=== PATIENT | female | born 1940 | race Caucasian/White ===

== ENCOUNTER 2018-10-17 10:00 | Observation (INO) ==
--- NOTE | 2018-10-17 10:29 | Emergency Department Note ---
Disposition Clinical Impression: Intractable nausea and vomiting Qualifiers: Vomiting type: unspecified Qualified Code(s): R11.2 - Nausea with vomiting, unspecified Urinary tract infection Qualifiers: Urinary tract infection type: acute cystitis Hematuria presence: without hematuria Qualified Code(s): N30.00 - Acute cystitis without hematuria Disposition: Admitted As Inpatient Condition: Fair Time of Disposition: 12:57 General Adult HPI - General Chief complaint: ED Nausea/Vomiting/Diarrhea Stated complaint: N/V Time Seen by Provider: 10/17/18 10:07 Source: patient, family Limitations: no limitations Nursing Notes Reviewed: Yes Vital Signs Reviewed: Yes - History of Present Illness HPI Narrative: 78-year-old female with history of Parkinson's disease who presents emergency Department with complaints of constipation, severe nausea and vomiting. The patient was seen at her primary care provider's office 3 days ago for similar symptoms. Family states she has been constipated and has not had a bowel movement over one week and she is at the point where she is only consistently tolerating ensure. She denies any pain in her abdomen, chest pain, shortness of breath, dysuria, hematuria, melena, hematochezia. She has been taking Zofran at home without improvement in her symptoms. Pain Scale: 0 - Related Data Home Medications Medication Instructions Recorded Confirmed Aspirin [Lo-Dose Aspirin EC] 81 mg PO DAILY 12/24/15 10/17/18 Carbidopa/Levodopa ER 50/200 1 each PO TID 12/24/15 10/17/18 [Sinemet ER 50-200 TAB] Cholecalciferol (Vitamin D3) 5,000 unit PO DAILY 12/24/15 10/17/18 [Vitamin D3] Lisinopril [Zestril] 20 mg PO BID 12/24/15 10/17/18 Simvastatin [Zocor] 20 mg PO HS 12/24/15 10/17/18 Oxybutynin [Ditropan] 2.5 mg PO BID 11/26/16 10/17/18 Meloxicam [Mobic] 7.5 mg PO BID 10/17/18 10/17/18 cloNIDine HCl [CloNIDine HCl] 0.1 mg PO DAILY PRN 10/17/18 10/17/18 Allergies Allergy/AdvReac Type Severity Reaction Status Date / Time No Known Allergies Allergy Verified 11/26/16 07:49 Review of Systems: ROS per history of present illness, all other systems reviewed and negative or normal. All systems ED: reviewed and negative except as stated. Review of Systems: As Per HPI Past Medical History - Past Medical History Medical history: Reports: arthritis, hyperlipidemia, hypertension Surgical history: Reports: appendectomy, breast surgery, hysterectomy - Social History Smoking Status: Former smoker Smokeless Tobacco Status: No Alcohol use: Reports: none Drug use: Reports: none Physical Exam General: Conversant. No apparent distress. Follow commands. Appears stated age. Patient has baseline tremor due to Parkinson's disease. Neck: No JVD. Trachea midline. Neck supple. Eyes: PERRL. No scleral icterus. HENT: Normocephalic and atraumatic. Moist mucus membranes. Cardiovascular: Regular rate and rhythm. Normal S1 and S2. No murmurs appreciated. Normal capillary refill. Extremities well perfused with 2+ distal pulses bilaterally. No edema. Pulmonary: Normal and equal breath sounds bilaterally, anteriorly and posteriorly. No wheezes, rales, or rhonchi. Not in respiratory distress. Speaks in full sentences. Abdomen: Soft, nondistended, and tontender. No bruits or masses. No guarding. Neuro: Alert and oriented x3. No slurred speech. No focal deficits noted. Skin: No rashes noted on visualized skin. Musculoskeletal: No bony abnormalities visualized. Moves all extremities. Psych: Normal mood. Pleasant. Makes appropriate eye contact. - General Limitations: no limitations Course - Reevaluation(s) Reevaluation #1: Discussed findings of KUB, laboratory evaluation with family. Patient's symptoms persist with nausea and she has been unable to tolerate anything orally. The patient lives at home alone and patient's family does not feel comfortable taking her home as she has been unable to care for herself. Time: 12:35 Vital Signs Temperature 98.2 F 10/17/18 10:02 Pulse Rate 97 10/17/18 10:02 Respiratory Rate 18 10/17/18 10:02 Blood Pressure 145/88 10/17/18 10:02 O2 Sat by Pulse Oximetry 96 10/17/18 10:02 Temperature 98.2 F 10/17/18 10:02 Pulse Rate 71 10/17/18 13:00 Respiratory Rate 18 10/17/18 13:00 Blood Pressure 154/63 10/17/18 13:00 O2 Sat by Pulse Oximetry 96 10/17/18 13:00 Oxygen Delivery Oxygen Delivery Room Air Medical Decision Making - MDM Narrative Medical decision making narrative: 78-year-old female with history of Parkinson's who presents the emergency department with complaints of intractable nausea and vomiting and decreased oral intake. The patient does have baseline tremors but otherwise has no abdominal tenderness, distention. The patient continues to be nauseated. 1 L fluid bolus as well as Zofran given without significant improvement. She does have an evaluation 3 days prior with a primary care physician including a right upper quadrant abdominal ultrasound and CT abdomen/pelvis. The patient continues to have no tenderness do not feel this is necessary to repeat imaging. We did get a KUB which shows no evidence of significant constipation. Laboratory evaluation including CBC, BMP, urinalysis shows no evidence of anemia, significant leukocytosis or electrolyte abdomen around a. Urinalysis shows increased white blood cell count and when compared with 3 days prior this does seem like mild improvement. Patient required repeat dosing of nausea medication, this time giving Phenergan but her symptoms persist. Given the patient's decreased oral intake and nausea will treat for urinary tract in fection. Patient's family does not feel constable bringing her home given her decreased oral intake and status as independent living. Discussed case with on- call hospitalist Dr. Falcon who agrees with plan for admission and accepts the patient to the inpatient service. Patient agrees with and understands course of treatment plan including plan for admission. All questions answered. - Medical Records Medical records reviewed: Yes I reviewed the patient's medical records. - Lab Data Lab results reviewed: Yes I reviewed the patient's lab results. Result diagrams: 10/17/18 10:34 10/17/18 10:34 Lab Results 10/17/18 10/17/18 10/17/18 Range/Units 10:34 10:34 11:05 WBC 8.2 (4.3-11.1) K/mcL RBC 3.92 (3.82-4.97) M/mcL Hgb 12.3 (11.5-15.4) g/dL Hct 35.9 (35.3-44.9) % MCV 91.6 (83.0-100.0) fL MCH 31.4 (28.0-33.3) pg MCHC 34.3 (31.6-35.5) g/dL RDW 13.2 (11.5-14.5) % Plt Count 246 (140-400) K/mcL MPV 9.4 (9.4-12.4) fL Immature Gran % 0.4 (0-4) % Seg Neutrophils % 79.8 % Lymphocytes % 13.3 % Monocytes % 5.6 % Eosinophils % 0.5 % Basophils % 0.4 % Neutrophils # 6.5 (1.6-8.9) K/mcL Lymphocytes # 1.1 (0.6-4.6) K/mcL Monocytes # 0.5 (0.0-1.3) K/mcL Eosinophils # 0.0 (0.0-0.6) K/mcL Basophils # 0.0 (0.0-0.2) K/mcL Sodium 138 (136-145) mEq/L Potassium 3.7 (3.5-5.1) mEq/L Chloride 102 (98-107) mEq/L Carbon Dioxide 26 (23-29) mEq/L BUN 16 (8-23) mg/dL Creatinine 0.64 (0.60-1.20) mg/dL Est GFR ( Amer) > 60 (> 60) Est GFR (Non-Af Amer) > 60 (> 60) BUN/Creatinine Ratio 25 (6-26) Glucose 152 H (70-105) mg/dL Calculated Osmolality 290 (280-300) Calcium 9.6 (8.6-10.3) mg/dL Magnesium 1.8 (1.6-2.6) mg/dL Total Bilirubin 0.5 (0.3-1.0) mg/dL Direct Bilirubin 0.1 (0.0-0.2) mg/dL Indirect Bilirubin 0.4 (0.0-1.2) mg/dL AST 19 (13-39) Units/L ALT < 3 L (7-52) Units/L Alkaline Phosphatase 75 (34-104) Units/L Serum Total Protein 6.9 (6.4-8.9) g/dL Albumin 4.5 (3.5-5.7) g/dL Globulin 2.4 (2.4-3.5) g/dL Albumin/Globulin Ratio 1.9 (1.1-2.2) Urine Color Yellow (Yellow) Urine Clarity Clear (Clear) Urine pH 6.5 (5.0-8.0) pH Units Ur Specific [place] 1.005 L (1.010-1.025) Urine Protein Negative (Neg-Trace) mg/dL Urine Glucose (UA) Normal (Normal) mg/dL Urine Ketones Negative (Negative) mg/dL Urine Blood Negative (Negative) Urine Nitrite Negative (Negative) Urine Bilirubin Negative (Negative) Urine Urobilinogen Normal (Normal) mg/dL Ur Leukocyte Esterase Moderate H (Negative) Urine Microscopic RBC 0-3 (0-3) per hpf Urine Microscopic WBC 15-30 H (0-3) per hpf Ur Squamous Epith Cells Few (None-Few) per lpf Urine Bacteria None Seen (None-Few) per hpf Hyaline Casts None Seen (None-Few) per lpf Ur Culture Indicated? YES A (NO) - Radiology Data Radiology results reviewed: Yes I reviewed the patient's radiology results. KUB X-Ray 10/17/18 10:57 IMPRESSION: Nonobstructive bowel gas pattern. The patient does not appear constipated. D/ / Edilson Pruitt MD / Edilson Pruitt MD Interpreting Provider: Edilson Pruitt MD - EKG Data EKG #1 EKG attestation: Yes I reviewed and interpreted this EKG. EKG results narrative: Normal sinus rhythm rate of 93. Normal axis. Normal intervals. No significant ST or T-wave abnormalities. No acute ischemic changes. No prior for comparison.
[2018-10-17 10:45] LABS: Basophils % 0.4 %; Eosinophils % 0.5 %; Hematocrit 35.9 % (35.3-44.9); Hemoglobin 12.3 g/dL (11.5-15.4); Immature Granulocytes % 0.4 % (0-4); Lymphocytes # 1.1 K/mcL (0.6-4.6); Lymphocytes % 13.3 %; Mean Corpuscular HGB Conc 34.3 g/dL (31.6-35.5); Mean Corpuscular Hemoglobin 31.4 pg (28.0-33.3); Mean Corpuscular Volume 91.6 fL (83.0-100.0); Mean Platelet Volume 9.4 fL (9.4-12.4); Monocytes # 0.5 K/mcL (0.0-1.3); Monocytes % 5.6 %; Neutrophils # 6.5 K/mcL (1.6-8.9); Platelet Count 246 K/mcL (140-400); Red Blood Count 3.92 M/mcL (3.82-4.97); Red Cell Distribution Width 13.2 % (11.5-14.5); Segmented Neutrophils % 79.8 %; White Blood Count 8.2 K/mcL (4.3-11.1)
[2018-10-17] MEDS ORDERED: Ondansetron 4 MG/2 ML VIAL IVP STA (10:56)
[2018-10-17] MEDS ORDERED: 0.9 % Sodium Chloride 1,000 ML IVC STA (10:56)
[2018-10-17 11:13] LABS: Alanine Aminotransferase < 3 Units/L (7-52)
[2018-10-17 11:14] LABS: Albumin 4.5 g/dL (3.5-5.7); Albumin/Globulin Ratio 1.9 (1.1-2.2); Alkaline Phosphatase 75 Units/L (34-104); Aspartate Amino Transferase 19 Units/L (13-39); BUN/Creatinine Ratio 25 (6-26); Bilirubin,Direct 0.1 mg/dL (0.0-0.2); Bilirubin,Indirect 0.4 mg/dL (0.0-1.2); Bilirubin,Total 0.5 mg/dL (0.3-1.0); Blood Urea Nitrogen 16 mg/dL (8-23); Calcium 9.6 mg/dL (8.6-10.3); Carbon Dioxide 26 mEq/L (23-29); Chloride 102 mEq/L (98-107); Globulin 2.4 g/dL (2.4-3.5); Glucose 152 mg/dL (70-105); Magnesium 1.8 mg/dL (1.6-2.6); Osmolality,Calculated 290 (280-300); Potassium 3.7 mEq/L (3.5-5.1); Sodium 138 mEq/L (136-145); Total Protein 6.9 g/dL (6.4-8.9); eGFR For African Americans > 60 (> 60); eGFR For Non-African Americans > 60 (> 60)
[2018-10-17 11:16] LABS: Bilirubin,Urine Negative (Negative); Blood,Urine Negative (Negative); Clarity,Urine Clear (Clear); Color,Urine Yellow (Yellow); Glucose,Urine (UA) Normal (Normal); Ketones,Urine Negative (Negative); Leukocyte Esterase,Urine Moderate (Negative); Nitrite,Urine Negative (Negative); PH,Urine 6.5 pH Units (5.0-8.0); Protein,Urine Negative (Neg-Trace); Specific Gravity,Urine 1.005 (1.010-1.025); Urobilinogen,Urine Normal (Normal)
[2018-10-17 11:17] LABS: Bacteria,Urine None Seen per hpf (None-Few); Hyaline Casts,Urine None Seen per lpf (None-Few); RBC,Urine 0-3 per hpf (0-3); Squamous Epithelial Cell,Urine Few per lpf (None-Few); WBC,Urine 15-30 per hpf (0-3)
[2018-10-17] MEDS ORDERED: cefTRIAXone 1,000 MG in Water for inj. (sterile) 20 ML 10 ML IVP STA (11:32)
--- NOTE | 2018-10-17 11:36 | Emergency Department Note ---
Disposition Referrals: Barrie Schulte DO [Primary Care Provider] - Forms: ED Satisfaction Letter General Adult HPI - General Chief complaint: ED Nausea/Vomiting/Diarrhea Stated complaint: N/V Time Seen by Provider: 10/17/18 10:07 Source: patient, family Limitations: no limitations - History of Present Illness Pain Scale: 0 - Related Data Home Medications Medication Instructions Recorded Confirmed Aspirin [Lo-Dose Aspirin EC] 81 mg PO DAILY 12/24/15 10/17/18 Carbidopa/Levodopa ER 50/200 1 each PO TID 12/24/15 10/17/18 [Sinemet ER 50-200 TAB] Cholecalciferol (Vitamin D3) 5,000 unit PO DAILY 12/24/15 10/17/18 [Vitamin D3] Lisinopril [Zestril] 20 mg PO BID 12/24/15 10/17/18 Simvastatin [Zocor] 20 mg PO HS 12/24/15 10/17/18 Oxybutynin [Ditropan] 2.5 mg PO BID 11/26/16 10/17/18 Meloxicam [Mobic] 7.5 mg PO BID 10/17/18 10/17/18 cloNIDine HCl [CloNIDine HCl] 0.1 mg PO DAILY PRN 10/17/18 10/17/18 Allergies Allergy/AdvReac Type Severity Reaction Status Date / Time No Known Allergies Allergy Verified 11/26/16 07:49 Past Medical History - Past Medical History Medical history: Reports: arthritis, hyperlipidemia, hypertension Surgical history: Reports: appendectomy, breast surgery, hysterectomy - Social History Smoking Status: Former smoker Smokeless Tobacco Status: No Alcohol use: Reports: none Drug use: Reports: none Physical Exam - General Limitations: no limitations Course Vital Signs Temperature 98.2 F 10/17/18 10:02 Pulse Rate 97 10/17/18 10:02 Respiratory Rate 18 10/17/18 10:02 Blood Pressure 145/88 10/17/18 10:02 O2 Sat by Pulse Oximetry 96 10/17/18 10:02 Temperature 98.2 F 10/17/18 10:02 Pulse Rate 84 10/17/18 11:22 Respiratory Rate 18 10/17/18 11:22 Blood Pressure 157/117 10/17/18 11:22 O2 Sat by Pulse Oximetry 96 10/17/18 10:02 Oxygen Delivery Oxygen Delivery Room Air Medical Decision Making - Lab Data Result diagrams: 10/17/18 10:34 10/17/18 10:34 Lab Results 10/17/18 10/17/18 10/17/18 Range/Units 10:34 10:34 11:05 WBC 8.2 (4.3-11.1) K/mcL RBC 3.92 (3.82-4.97) M/mcL Hgb 12.3 (11.5-15.4) g/dL Hct 35.9 (35.3-44.9) % MCV 91.6 (83.0-100.0) fL MCH 31.4 (28.0-33.3) pg MCHC 34.3 (31.6-35.5) g/dL RDW 13.2 (11.5-14.5) % Plt Count 246 (140-400) K/mcL MPV 9.4 (9.4-12.4) fL Immature Gran % 0.4 (0-4) % Seg Neutrophils % 79.8 % Lymphocytes % 13.3 % Monocytes % 5.6 % Eosinophils % 0.5 % Basophils % 0.4 % Neutrophils # 6.5 (1.6-8.9) K/mcL Lymphocytes # 1.1 (0.6-4.6) K/mcL Monocytes # 0.5 (0.0-1.3) K/mcL Eosinophils # 0.0 (0.0-0.6) K/mcL Basophils # 0.0 (0.0-0.2) K/mcL Sodium 138 (136-145) mEq/L Potassium 3.7 (3.5-5.1) mEq/L Chloride 102 (98-107) mEq/L Carbon Dioxide 26 (23-29) mEq/L BUN 16 (8-23) mg/dL Creatinine 0.64 (0.60-1.20) mg/dL Est GFR ( Amer) > 60 (> 60) Est GFR (Non-Af Amer) > 60 (> 60) BUN/Creatinine Ratio 25 (6-26) Glucose 152 H (70-105) mg/dL Calculated Osmolality 290 (280-300) Calcium 9.6 (8.6-10.3) mg/dL Magnesium 1.8 (1.6-2.6) mg/dL Total Bilirubin 0.5 (0.3-1.0) mg/dL Direct Bilirubin 0.1 (0.0-0.2) mg/dL Indirect Bilirubin 0.4 (0.0-1.2) mg/dL AST 19 (13-39) Units/L ALT < 3 L (7-52) Units/L Alkaline Phosphatase 75 (34-104) Units/L Serum Total Protein 6.9 (6.4-8.9) g/dL Albumin 4.5 (3.5-5.7) g/dL Globulin 2.4 (2.4-3.5) g/dL Albumin/Globulin Ratio 1.9 (1.1-2.2) Urine Color Yellow (Yellow) Urine Clarity Clear (Clear) Urine pH 6.5 (5.0-8.0) pH Units Ur Specific [place] 1.005 L (1.010-1.025) Urine Protein Negative (Neg-Trace) mg/dL Urine Glucose (UA) Normal (Normal) mg/dL Urine Ketones Negative (Negative) mg/dL Urine Blood Negative (Negative) Urine Nitrite Negative (Negative) Urine Bilirubin Negative (Negative) Urine Urobilinogen Normal (Normal) mg/dL Ur Leukocyte Esterase Moderate H (Negative) Urine Microscopic RBC 0-3 (0-3) per hpf Urine Microscopic WBC 15-30 H (0-3) per hpf Ur Squamous Epith Cells Few (None-Few) per lpf Urine Bacteria None Seen (None-Few) per hpf Hyaline Casts None Seen (None-Few) per lpf Ur Culture Indicated? YES A (NO) Attestation Statement - Attestation Attestation: I examined this patient and my medical decision-making was reviewed with the Resident Physician. I agree with the documented findings, disposition and treatment plan as described except to the extent set forth below. Patient presents for reevaluation after being seen here 3 days ago with same complaint. Family says she has not had a bowel movement in at least a week, possibly 2. They are concerned about dehydration because everything she eats or drinks comes back up. She complains of persistent nausea. On my exam, abdomen is soft, nondistended, no tenderness (although there was some tenderness with the placement of the ultrasound probe in the epigastrium). Urinalysis looks better than it did 3 days ago when the culture was negative. There were a few bacteria at that point, there are none now; there were 50-100 white cells at that point, there are 15-30 now; both had moderate esterase and few epithelial cells. I was present and assisting with Dr. Weiss's ultrasound, which was consistent with volume depletion.
[2018-10-17] MEDS ORDERED: *HR* Promethazine 25 MG/ML VIAL IVP ONE (12:19)
[2018-10-17] MEDS ORDERED: cefTRIAXone 1,000 MG in Water for inj. (sterile) 20 ML 10 ML IVP ONE (12:56)
--- NOTE | 2018-10-17 13:54 | Electrocardiograph Report ---
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
[2018-10-17] MEDS ORDERED: OXYCODONE Oral CONC 10 MG/0.5 ML ORAL.SYG SL PRN (15:13)
[2018-10-17] MEDS ORDERED: Naloxone 0.4 MG/ML INJ IVP PRN (15:13)
[2018-10-17] MEDS ORDERED: Ondansetron 4 MG/2 ML VIAL IVP PRN (15:13)
[2018-10-17] MEDS ORDERED: 0.9 % Sodium Chloride 1,000 ML IVC SCH (15:15)
[2018-10-17] MEDS ORDERED: cloNIDine HCl 0.1 MG TABLET PO PRN (15:18)
--- NOTE | 2018-10-17 15:24 | Internal Med History&Physical ---
Date of Encounter: 10/17/18 Time of Encounter: 15:24 Internal Medicine - H&P: HPI Chief complaint: N/V Admitted From: Emergency Dept Plans for Post Hospital Care: Home History of present illness: Ms. Marie is a 78 year old female past medical history of hypertension hyperlipidemia Parkinson's disease-patient presented to [facility] ED with complaints of nausea vomiting and constipation for the past month. She also is ex periencing intermittent epigastric pain which she states is chronic. According to the family and patient has not had a bowel movement in the past week possibly 2. Currently denies any abdominal pain she states whenever she eats anything it immediately vomits she has no appetite she has had approximately 5-6 pound weight loss in the past month. She denies any difficulty swallowing or globulus sensation she did have an outpatient CT of abdomen/pelvis with contrast which did not show anything acute she has had an cholecystectomy appendectomy and hysterectomy outpatient right upper quadrant ultrasound was unremarkable. Denies any fevers chills cough melena hematochezia or hematemesis. She p resented to the ER with the above complaints. KUB was obtained which showed nonobstructive bowel gas pattern and that the patient did not appear constipated. Lab work was unremarkable urinalysis did show some leukocyte esterase and WBC- urine cultures were sent and patient was initiated on Rocephi n. She has been admitted for further workup and evaluation. Currently patient denies any abdominal pain she is currently sipping on some soda and tolerating well discuss treatment plan with the patient who verbalized understanding. Also discussed CODE STATUS with the patient who expressed she would like to be a full code. Past Med Surg Social Fam HX - Past Medical History Medical history: arthritis, hyperlipidemia, hypertension Additional medical history: Parkinson's Disease Psychiatric history: no psych history - Past Surgical History Surgical History: appendectomy, breast surgery, cholecystectomy, hysterectomy - Social History Smoking Status: Former smoker Smokeless Tobacco Status: No Alcohol use: none Drug use: none - Family History Mother Living Status: Age at : 80 Hx Family Respiratory Disorders: Yes Father Living Status: Age at : 91 Cause of : CHF Hx Family Cardiac Disorders: Yes Internal Medicine - H&P: Meds Aspirin [Lo-Dose Aspirin EC] 81 mg PO DAILY 12/24/15 [History] Cholecalciferol (Vitamin D3) [Vitamin D3] 5,000 unit PO DAILY 12/24/15 [History] Lisinopril [Zestril] 20 mg PO BID 12/24/15 [History] Simvastatin [Zocor] 20 mg PO HS 12/24/15 [History] Oxybutynin [Ditropan] 5 mg PO DAILY 11/26/16 [History] Carbidopa/Levodopa 25/100 [Sinemet 25/100] 2 each PO TID 10/17/18 [History] Doxylamine Succinate [Unisom] 25 mg PO HS 10/17/18 [History] Meloxicam [Mobic] 7.5 mg PO BID 10/17/18 [History] Multivitamin/Iron/Folic Acid [Centrum Complete Multivit Tab] 1 each PO DAILY 10/17/18 [History] cloNIDine HCl [CloNIDine HCl] 0.1 mg PO DAILY PRN 10/17/18 [History] Allergy/AdvReac Type Severity Reaction Status Date / Time No Known Allergies Allergy Verified 11/26/16 07:49 All Systems PM: A 10-system review of systems was performed and is negative for pertinent findings except as documented above in the HPI. - Constitutional Constitutional: no chills, no fever(s), no night sweats - EENT Eyes: no change in vision, no discharge, no pain, no photophobia Ears: no ear discharge, no ear pain, no tinnitus Nose, mouth and throat: no dysphagia, no nasal discharge, no neck pain, no sore throat - Cardiovascular Cardiovascular ROS IM: no chest pain, no diaphoresis, no dyspnea, no lightheade dness, no palpitations, no syncope - Respiratory Respiratory: no cough, no dyspnea, no wheezing, no excessive phlegm production - Gastrointestinal Gastrointestinal: abdominal pain, no diarrhea, no hematemesis, no hematochezia, no melena, no nausea, no vomiting - Genitourinary Genitourinary: no change in urinary stream, no dysuria, no flank pain, no hematuria - Musculoskeletal Musculoskeletal ROS IM: no numbness, no tingling - Integumentary Integumentary IM: no rash, no unusual bruising - Neurological Neurological ROS: no confusion, no convulsions, no focal weakness, no numbness, no tingling, no tremor(s) - Hematologic/Lymphatic Hematologic/Lymphatic: no easy bruising - Constitutional Vitals: Temp Pulse Resp BP Pulse Ox 98.2 F 71 18 154/63 96 10/17/18 10:02 10/17/18 13:00 10/17/18 13:00 10/17/18 13:00 10/17/18 13:00 General appearance: Present: A&O X 3 Exam: . - Head Head exam: Present: atraumatic, normocephalic - Eye Eye exam: Present: PERRL, conjuntiva pink, sclera anicteric Pupils: Present: PERRL - Neck Neck exam general surgery: Present: supple, trachea midline. Absent: lymphadenopathy - Respiratory Respiratory exam: Present: CTAB. Absent: accessory muscle use, rales, rhonchi, wheezes - Cardiovascular Cardiovascular exam: Present: RRR, +S1, +S2. Absent: diastolic murmur, gallop, rubs, systolic murmur - GI/Abdominal GI/Abdominal exam: Present: normal bowel sounds, soft, no peritoneal signs. Absent: distended, tenderness - Extremities Exam Extremities exam: Present: warm, radial pulses palpable and symmetrical. Absent: calf tenderness, cyanotic, pedal edema - Neurological Exam Neurological exam: Present: CN II-XII intact, oriented X3, no focal deficits. Absent: pronater drift, facial droop, speech deficit Additional comments: noted jerking movements - Skin Skin exam: Present: dry, intact Internal Med - H&P Results - Labs CBC & Chem 7: 10/17/18 10:34 10/17/18 10:34 Labs: Short CBC 10/17/18 Range/Units 10:34 WBC 8.2 (4.3-11.1) K/mcL Hgb 12.3 (11.5-15.4) g/dL Hct 35.9 (35.3-44.9) % Plt Count 246 (140-400) K/mcL Neutrophils # 6.5 (1.6-8.9) K/mcL BMP 10/17/18 10:34 Sodium 138 Potassium 3.7 Chloride 102 Carbon Dioxide 26 BUN 16 Creatinine 0.64 Glucose 152 H Calcium 9.6 Liver Function 10/17/18 Range/Units 10:34 Total Bilirubin 0.5 (0.3-1.0) mg/dL Direct Bilirubin 0.1 (0.0-0.2) mg/dL AST 19 (13-39) Units/L ALT < 3 L (7-52) Units/L Alkaline Phosphatase 75 (34-104) Units/L Albumin 4.5 (3.5-5.7) g/dL Urine 10/17/18 Range/Units 11:05 Urine Color Yellow (Yellow) Urine Clarity Clear (Clear) Urine pH 6.5 (5.0-8.0) pH Units Ur Specific [place] 1.005 L (1.010-1.025) Urine Protein Negative (Neg-Trace) mg/dL Urine Glucose (UA) Normal (Normal) mg/dL - Impressions ITS Impressions KUB X-Ray 10/17/18 10:57 IMPRESSION: Nonobstructive bowel gas pattern. The patient does not appear constipated. D/ / Edilson Pruitt MD / Edilson Pruitt MD Interpreting Provider: Edilson Pruitt MD - Assessment and Plan (1) HTN (hypertension) Current Visit: Yes Status: Acute Assessment and plan: We will continue home medications Qualifiers: Hypertension type: essential hypertension Qualified Code(s): I10 - Essential (primary) hypertension (2) Intractable nausea and vomiting Current Visit: Yes Status: Acute Assessment and plan: 1 she states for the past month she has been unable to eat or tolerate solid foods when she eats she immediately vomits. She also has been experiencing anorexia and has not had an appetite for the past month she has lost approximately 5-6 pounds. She has been tolerating liquids and ensure. She does have occasional abdominal pain however she states this is chronic is mostly epigastric side in and will relieve on its own. Pain is not associated with food. She also states that she has been experiencing constipation and feels as if her abdomen is full. She did have a CT of abdomen and pelvis with contrast which was unremarkable. Also right upper quadrant abdominal ultrasound which was also unremarkable. KUB while in the ER showed mild to moderate stool and nonobstructive bowel gas pattern. She has been passing gas. Denies any globulus sensation Denies any fevers does not have a white count. She did have a colonoscopy in 2017 which was unremarkable however is never had an EGD. Denies any heartburn or GERD symptoms denies any melena or hematochezia or hematemesis. We will place patient on clear liquid diet and advance as tolerated We will give IV fluids Monitor electrolytes and replace as needed Antiemetics We will consult GI Qualifiers: Vomiting type: unspecified Qualified Code(s): R11.2 - Nausea with vomiting, unspecified (3) Urinary tract infection Current Visit: Yes Status: Acute Assessment and plan: Initiated on Rocephin urine culture pending Qualifiers: Urinary tract infection type: acute cystitis Hematuria presence: without hematuria Qualified Code(s): N30.00 - Acute cystitis without hematuria (4) Constipation Current Visit: Yes Status: Acute Assessment and plan: Patient states that she has not had a bowel movement in approximately one week family states possibly 2 weeks. She has had poor oral intake secondary to nausea and vomiting. Patient states her abdomen feels full KUB shows nonobstructive bowel gas pattern and does not appear constipated. Denies any abdominal pain GI has been consulted Qualifiers: Constipation type: unspecified constipation type Qualified Code(s): K59.00 - Constipation, unspecified - Time Spent With Patient Total time spent is greater than 50% in coordination of care (as documented) at patient's floor/unit and/or counseling patient:
[2018-10-17] MEDS: *HR* Promethazine 25 MG/ML VIAL IVP PRN ×2 (17:24→23:35)
[2018-10-17] MEDS ORDERED: MELOXICAM 7.5MG TAB PO PRN (17:48)
[2018-10-17] MEDS: CARBIDOPA/LEVODOPA 25/100MG TAB PO SCH (19:45)
[2018-10-17] MEDS: LISINOPRIL 20MG PO SCH (19:45)
[2018-10-17] MEDS: SIMVASTATIN 20MG TAB PO SCH (19:45)
[2018-10-17] MEDS ORDERED: Carbidopa/Levodopa 25/100 TABLET PO SCH (21:00)
[2018-10-17] MEDS ORDERED: Lisinopril 20 MG TABLET PO SCH (21:00)
[2018-10-18 02:42] LABS: Basophils % 0.3 %; Eosinophils # 0.1 K/mcL (0.0-0.6); Eosinophils % 1.4 %; Hematocrit 33.9 % (35.3-44.9); Hemoglobin 11.3 g/dL (11.5-15.4); Immature Granulocytes % 0.3 % (0-4); Lymphocytes # 1.4 K/mcL (0.6-4.6); Lymphocytes % 18.1 %; Mean Corpuscular HGB Conc 33.3 g/dL (31.6-35.5); Mean Corpuscular Hemoglobin 31.6 pg (28.0-33.3); Mean Corpuscular Volume 94.7 fL (83.0-100.0); Mean Platelet Volume 9.4 fL (9.4-12.4); Monocytes # 0.7 K/mcL (0.0-1.3); Monocytes % 8.8 %; Neutrophils # 5.6 K/mcL (1.6-8.9); Platelet Count 221 K/mcL (140-400); Red Blood Count 3.58 M/mcL (3.82-4.97); Red Cell Distribution Width 13.1 % (11.5-14.5); Segmented Neutrophils % 71.1 %; White Blood Count 7.9 K/mcL (4.3-11.1)
[2018-10-18 02:57] LABS: BUN/Creatinine Ratio 15 (6-26); Blood Urea Nitrogen 10 mg/dL (8-23); Calcium 8.8 mg/dL (8.6-10.3); Carbon Dioxide 28 mEq/L (23-29); Chloride 111 mEq/L (98-107); Glucose 89 mg/dL (70-105); Magnesium 1.9 mg/dL (1.6-2.6); Osmolality,Calculated 301 (280-300); Potassium 3.4 mEq/L (3.5-5.1); Sodium 146 mEq/L (136-145); eGFR For African Americans > 60 (> 60); eGFR For Non-African Americans > 60 (> 60)
--- NOTE | 2018-10-18 08:32 | Internal Med Progress Note ---
Hospitalist Progress Note - Encounter Date of Encounter: 10/18/18 Time of Encounter: 12:49 - Subjective Interval History: Patient was seen and examined at bedside Currently she is sleeping S/P EGD- discussed finding with the patient family at bedside- We will evaluate if she can tolerate eating once she is awake. - Exam Vitals: Temp Pulse Resp BP Pulse Ox 98.8 F 57 15 132/66 94 10/18/18 06:53 10/18/18 06:53 10/18/18 06:53 10/18/18 06:53 10/18/18 06:53 Exam: Skin: Free of rash and discoloration. Eyes: Sclera is white. There is no discharge from eyes. ENMT: Oral/pharyngeal mucosa is normal in appearance. There is no discharge from nose or ears. Respiratory: Normal breath sounds with no crackles and wheezes bilaterally. CV: Heart is regular with no gallop or murmur. GI: Abdomen is flat and soft with no palpable mass or visceromegaly. : There is no tenderness in patient's flanks bilaterally. Neuro exam: He has good strength in upper and lower extremities. He has normal eye movements. no spatstic movements noted at this time Psychiatric: He has normal affect. His thought process is appropriate to the situation. - Assessment and Plan (1) HTN (hypertension) Current Visit: Yes Status: Chronic Assessment and Plan: We will continue home medications- BP stable at this time (2) Intractable nausea and vomiting Current Visit: Yes Status: Acute Assessment and Plan: 1 she states for the past month she has been unable to eat or tolerate solid foods when she eats she immediately vomits. She also has been experiencing anorexia and has not had an appetite for the past month she has lost approximately 5-6 pounds. She has been tolerating liquids and ensure. She does have occasional abdominal pain however she states this is chronic is mostly epigastric side in and will relieve on its own. Pain is not associated with food. She also states that she has been experiencing constipation and feels as if her abdomen is full. She did have a CT of abdomen and pelvis with contrast which was unremarkable. Also right upper quadrant abdominal ultrasound which was also unremarkable. KUB while in the ER showed mild to moderate stool and nonobstructive bowel gas pattern. She has been passing gas. Denies any globulus sensation Denies any fevers does not have a white count. She did have a colonoscopy in 2017 which was unremarkable however is never had an EGD. Denies any heartburn or GERD symptoms denies any melena or hematochezia or hematemesis. We will place patient on clear liquid diet and advance as tolerated We will give IV fluids Monitor electrolytes and replace as needed Antiemetics We will consult GI 10/18 patient underwent EGD today-Normal study- Maybe side effects of medications- w ill start on PPI per recommendations I am concerned about progressing Parkinson symptoms will have speech see patient (3) Urinary tract infection Current Visit: Yes Status: Acute Assessment and Plan: Initiated on Rocephin urine culture pending (4) Constipation Current Visit: Yes Status: Chronic Assessment and Plan: Patient states that she has not had a bowel movement in approximately one week family states possibly 2 weeks. She has had poor oral intake secondary to nausea and vomiting. Patient states her abdomen feels full KUB shows nonobstructive bowel gas pattern and does not appear constipated. Denies any abdominal pain will place on stool softeners- she has had poor oral intake (5) Parkinson disease Current Visit: No Status: Chronic Assessment and Plan: Hx of parkinson disease- she does have significant head tremor and bilat upper extremity tremors- she states she has been compliant with meds cont with home medications - Time Spent with Patient Total time spent is greater than 50% in coordination of care (as documented) at patient's floor/unit and/or counseling patient: Internal Medicine: Result - Labs CBC & Chem 7: 10/18/18 02:19 10/18/18 02:19 Labs: Short CBC 10/17/18 10/18/18 Range/Units 10:34 02:19 WBC 8.2 7.9 (4.3-11.1) K/mcL Hgb 12.3 11.3 L (11.5-15.4) g/dL Hct 35.9 33.9 L (35.3-44.9) % Plt Count 246 221 (140-400) K/mcL Neutrophils # 6.5 5.6 (1.6-8.9) K/mcL BMP 10/17/18 10/18/18 10:34 02:19 Sodium 138 146 H Potassium 3.7 3.4 L Chloride 102 111 H Carbon Dioxide 26 28 BUN 16 10 Creatinine 0.64 0.65 Glucose 152 H 89 Calcium 9.6 8.8 Liver Function 10/17/18 Range/Units 10:34 Total Bilirubin 0.5 (0.3-1.0) mg/dL Direct Bilirubin 0.1 (0.0-0.2) mg/dL AST 19 (13-39) Units/L ALT < 3 L (7-52) Units/L Alkaline Phosphatase 75 (34-104) Units/L Albumin 4.5 (3.5-5.7) g/dL Urine 10/17/18 Range/Units 11:05 Urine Color Yellow (Yellow) Urine Clarity Clear (Clear) Urine pH 6.5 (5.0-8.0) pH Units Ur Specific [place] 1.005 L (1.010-1.025) Urine Protein Negative (Neg-Trace) mg/dL Urine Glucose (UA) Normal (Normal) mg/dL - Impressions Impressions KUB X-Ray 10/17/18 10:57 IMPRESSION: Nonobstructive bowel gas pattern. The patient does not appear constipated. D/ / Edilson Pruitt MD / Edilson Pruitt MD Interpreting Provider: Edilson Pruitt MD Consult Discharge Plan - Plan Referrals: Barrie Schulte, [Primary Care Provider] - (1) HTN (hypertension) Qualifiers: Hypertension type: essential hypertension Qualified Code(s): I10 - Essential (primary) hypertension (2) Intractable nausea and vomiting Qualifiers: Vomiting type: unspecified Qualified Code(s): R11.2 - Nausea with vomiting, unspecified (3) Urinary tract infection Qualifiers: Urinary tract infection type: acute cystitis Hematuria presence: without hematuria Qualified Code(s): N30.00 - Acute cystitis without hematuria (4) Constipation Qualifiers: Constipation type: unspecified constipation type Qualified Code(s): K59.00 - Constipation, unspecified
[2018-10-18] MEDS ORDERED: Aspirin Enteric Coated 81 MG Tablet PO SCH (09:00)
--- NOTE | 2018-10-18 09:02 | Internal Medicine Consult Note ---
Date of Encounter: 10/18/18 Time of Encounter: 08:59 - Assessment and Plan (1) Intractable nausea and vomiting Current Visit: Yes Status: Acute Assessment and plan: Her exam is fairly benign, as has recent imaging with CAT scan of abdomen and pelvis. Differential to include uncontrolled reflux, even know she is really not having any symptoms. Does not appear to be neurologic with history of parkinsonism although that is a potential consideration as well. Other things to consider to include gastroparesis, mass, which I think is unlikely. And I think more possibility could be medication side effect I would certainly re commend holding the statin, nonsteroidals, aspirin therapy and only give medication which is needed at this time. I think is a good chance her upper endoscopy could be normal. If this the case, then we will recommend empiric PPI therapy I have described risks and benefits of procedure with the family, consent has been signed. Qualifiers: Vomiting type: unspecified Qualified Code(s): R11.2 - Nausea with vomiting, unspecified (2) Constipation Current Visit: Yes Status: Chronic Qualifiers: Constipation type: unspecified constipation type Qualified Code(s): K59.00 - Constipation, unspecified (3) HTN (hypertension) Current Visit: Yes Status: Chronic Qualifiers: Hypertension type: essential hypertension Qualified Code(s): I10 - Essential (primary) hypertension Internal Medicine - CN: HPI - Data of Consult Consult date: 10/18/18 Requesting Physician: Elda Falcon - Consult Narrative Reason for consult: Protracted nausea and vomiting History of present illness: Ms. Marie is a 78 year old female seen by the hospitalist. I was asked to see her regarding progressive nausea and vomiting over the past month or so. In the outpatient setting, she has had a negative CAT scan of the abdomen and pelvis and lab studies, her labs on admission here look pretty good as well, her urine is slightly dirty although she reports no UTI symptoms. Her sister, and granddaughter in the room, and also relate a history of nausea and vomiting for the past month, she has some early satiety with this. She denies any reflux, there is some vague upper abdominal discomfort, but I cannot tell this with or without meals. For the past few months if not longer, she has had progressive constipation, but that is not surprising given the meds for her parkinsonism. There have been no changes in medication recently, no dysphagia or odynophagia, no trouble swallowing. There has been some weight loss. Family reports only able to keep down Ensure Past Med Surg Social Fam HX - Past Medical History Medical history: arthritis, hyperlipidemia, hypertension Additional medical history: Parkinson's Disease Psychiatric history: no psych history - Past Surgical History Surgical History: appendectomy, breast surgery, cholecystectomy, hysterectomy - Social History Smoking Status: Former smoker Smokeless Tobacco Status: No Alcohol use: none Drug use: none - Family History Mother Living Status: Age at : 80 Hx Family Respiratory Disorders: Yes Father Living Status: Age at : 91 Cause of : CHF Hx Family Cardiac Disorders: Yes - Constitutional Constitutional: anorexia, fatigue, lethargy, weight loss, no fever(s) - EENT Nose, mouth and throat: no mouth lesions, no neck pain, no odynophagia, no sore throat Additional comments: She is without teeth. Does wear dentures. - Cardiovascular Cardiovascular ROS IM: no chest pain, no diaphoresis, no dyspnea on exertion, no irregular heart rhythm, no syncope - Respiratory Respiratory: no cough, no dyspnea, no wheezing, no snoring - Gastrointestinal Gastrointestinal: abdominal pain, early satiety, nausea, vomiting, no dysphagia, no heartburn, no hematemesis, no hematochezia - Neurological Neurological ROS: tremor(s) Internal Medicine - CN: Meds Aspirin [Lo-Dose Aspirin EC] 81 mg PO DAILY 12/24/15 [History] Cholecalciferol (Vitamin D3) [Vitamin D3] 5,000 unit PO DAILY 12/24/15 [History] Lisinopril [Zestril] 20 mg PO BID 12/24/15 [History] Simvastatin [Zocor] 20 mg PO HS 12/24/15 [History] Oxybutynin [Ditropan] 5 mg PO DAILY 11/26/16 [History] Carbidopa/Levodopa 25/100 [Sinemet 25/100] 2 each PO TID 10/17/18 [History] Doxylamine Succinate [Unisom] 25 mg PO HS 10/17/18 [History] Meloxicam [Mobic] 7.5 mg PO BID 10/17/18 [History] Multivitamin/Iron/Folic Acid [Centrum Complete Multivit Tab] 1 each PO DAILY 06/21/19 [History] cloNIDine HCl [CloNIDine HCl] 0.1 mg PO DAILY PRN 10/17/18 [History] Allergy/AdvReac Type Severity Reaction Status Date / Time No Known Allergies Allergy Verified 11/26/16 07:49 Internal Med - CN: Exam - Constitutional Vitals: Temp Pulse Resp BP Pulse Ox 98.8 F 57 15 132/66 94 10/18/18 06:53 10/18/18 06:53 10/18/18 06:53 10/18/18 06:53 10/18/18 06:53 General appearance IM: Present: disheveled, A&O X 3, pleasant, answers questions appropriately Exam: Family is present, she excellent little lethargic, but apparently per family, 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 - Head Head exam: Present: atraumatic, normal inspection - Eye Eye exam: Present: conjuntiva pink, sclera anicteric - ENT ENT exam: Present: mucous membranes moist, normal oropharynx - Neck Neck exam general surgery: Present: full ROM, supple, trachea midline - Respiratory Respiratory exam: Present: CTAB - Cardiovascular Cardiovascular exam IM: Present: RRR, +S1, +S2. Absent: JVD, tachycardia - GI/Abdominal GI/Abdominal exam IM: Present: normal bowel sounds, soft, no peritoneal signs. Absent: rebound, tenderness Internal Medicine - CN: Reslt - Labs CBC & Chem 7: 10/18/18 02:19 10/18/18 02:19 Labs: Short CBC 10/17/18 10/18/18 Range/Units 10:34 02:19 WBC 8.2 7.9 (4.3-11.1) K/mcL Hgb 12.3 11.3 L (11.5-15.4) g/dL Hct 35.9 33.9 L (35.3-44.9) % Plt Count 246 221 (140-400) K/mcL Neutrophils # 6.5 5.6 (1.6-8.9) K/mcL BMP 10/17/18 10/18/18 10:34 02:19 Sodium 138 146 H Potassium 3.7 3.4 L Chloride 102 111 H Carbon Dioxide 26 28 BUN 16 10 Creatinine 0.64 0.65 Glucose 152 H 89 Calcium 9.6 8.8 Liver Function 10/17/18 Range/Units 10:34 Total Bilirubin 0.5 (0.3-1.0) mg/dL Direct Bilirubin 0.1 (0.0-0.2) mg/dL AST 19 (13-39) Units/L ALT < 3 L (7-52) Units/L Alkaline Phosphatase 75 (34-104) Units/L Albumin 4.5 (3.5-5.7) g/dL Urine 10/17/18 Range/Units 11:05 Urine Color Yellow (Yellow) Urine Clarity Clear (Clear) Urine pH 6.5 (5.0-8.0) pH Units Ur Specific [place] 1.005 L (1.010-1.025) Urine Protein Negative (Neg-Trace) mg/dL Urine Glucose (UA) Normal (Normal) mg/dL - Impressions Impressions KUB X-Ray 10/17/18 10:57 IMPRESSION: Nonobstructive bowel gas pattern. The patient does not appear constipated. D/ / Edilson Pruitt MD / Edilson Pruitt MD Interpreting Provider: Edilson Pruitt MD Consult Discharge Plan - Plan Referrals: Barrie Schulte DO [Primary Care Provider] -
[2018-10-18] MEDS: cefTRIAXone 1,000 MG in Water for inj. (sterile) 20 ML 10 ML IVP SCH (09:33)
[2018-10-18] MEDS ORDERED: *HR* Midazolam HCl 5 MG/5 ML VIAL IVP ONE ×2 (09:56→10:15)
[2018-10-18] MEDS ORDERED: *HR* FentaNYL (PF) 100 MCG/2 ML VIAL ONE (09:56)
[2018-10-18] MEDS ORDERED: *HR* FentaNYL (PF) 100 MCG/2 ML VIAL IVP ONE (10:15)
[2018-10-18] MEDS ORDERED: Simethicone 40 MG/0.6 ML MLS IR ONE (10:15)
[2018-10-18] MEDS ORDERED: Tetracaine/Benzocaine/Butamben 1 SPRAY AEROSOL MM ONE (10:15)
[2018-10-18] MEDS ORDERED: 0.9 % Sodium Chloride 1,000 ML IVC SCH (10:15)
--- NOTE | 2018-10-18 10:15 | Pre-Sedation Evaluation ---
Pre-sedation evaluation - Pre-sedation checklist Date of procedure: 10/18/18 Procedure: EGD Recent Vitals: Last Vital Signs Temp 98.4 F 10/18/18 10:08 Pulse 66 10/18/18 10:08 Resp 16 10/18/18 10:08 BP 182/79 10/18/18 10:08 Pulse Ox 95 10/18/18 10:08 H&P (including ROS) documented in medical record: Yes Previous reaction to sedatives/anesthetics: No Dietary Status: NPO after Midnight Airway Assessment: Patient can open mouth completely, TMJ function normal Dentition: dentures removed Possible difficult airway: No ASA Classification *see protocol: CLASS II-Mild systemic disease Plan of Care: Pt appropriate candidate for procedure/moderate/conscious sedation
--- NOTE | 2018-10-18 10:31 | Event Note ---
Date of Encounter: 10/18/18 Time of Encounter: 10:27 EGD Findings: 1. Normal Study Impressons: 1. May be med side affect. 2. Cannot exclude esoph. dysmotility, Consider atypical GERD 3. Does not appear to be Gastroparesis Recommendations: 1. Stop all un needed meds; No more Statin, ASA, Mobic 2. Frequent small meals.. I suspect the more pureed, the better she will do. 3. PPI therapy for 3 months. I have talked with family.
[2018-10-18] MEDS: CARBIDOPA/LEVODOPA 25/100MG TAB PO SCH ×3 (10:57→20:14)
[2018-10-18] MEDS: OXYBUTYNIN 5 MG PO SCH (10:57)
[2018-10-18] MEDS: LISINOPRIL 20MG PO SCH ×2 (10:57→20:15)
[2018-10-18] MEDS ORDERED: Potassium Chloride 20 MEQ, Lidocaine 1% 2 ML in D5% in Water 250 ML IVPB ONE (12:22)
[2018-10-18] MEDS: SIMVASTATIN 20MG TAB PO SCH (20:16)
[2018-10-19 02:05] LABS: BUN/Creatinine Ratio 23 (6-26); Blood Urea Nitrogen 13 mg/dL (8-23); Calcium 8.5 mg/dL (8.6-10.3); Carbon Dioxide 25 mEq/L (23-29); Chloride 109 mEq/L (98-107); Glucose 101 mg/dL (70-105); Osmolality,Calculated 290 (280-300); Potassium 3.5 mEq/L (3.5-5.1); Sodium 140 mEq/L (136-145); eGFR For African Americans > 60 (> 60); eGFR For Non-African Americans > 60 (> 60)
[2018-10-19 06:52] VITALS: BP 167/93
[2018-10-19] MEDS: OXYBUTYNIN 5 MG PO SCH (08:11)
[2018-10-19] MEDS: cefTRIAXone 1,000 MG in Water for inj. (sterile) 20 ML 10 ML IVP SCH (08:11)
[2018-10-19] MEDS: CARBIDOPA/LEVODOPA 25/100MG TAB PO SCH (08:12)
[2018-10-19] MEDS: LISINOPRIL 20MG PO SCH (08:12)
--- NOTE | 2018-10-19 10:09 | Discharge Summary ---
- NOTES TO OUTPATIENT PROVIDER Notes to Outpatient Provider: Patient presented after experiencing nausea and vomiting after eating -EGD completed-within normal limits-avoid gastric irritants-evaluated by speech therapy recommending patient sit up at least 30 minutes after eating-soft diet-may benefit from barium swallow as outpatient Orders not resulted at time of discharge: Pending orders 10/17/18 11:05 Culture,Urine [RM] Stat Date of Encounter: 10/19/18 Time of Encounter: 10:04 - Discharge Diagnosis (1) HTN (hypertension) Priority: Secondary Status: Chronic Qualifiers: Hypertension type: essential hypertension Qualified Code(s): I10 - Essential (primary) hypertension (2) Intractable nausea and vomiting Priority: Primary Status: Acute Qualifiers: Vomiting type: unspecified Qualified Code(s): R11.2 - Nausea with vomiting, unspecified (3) Urinary tract infection Priority: Secondary Status: Acute Qualifiers: Urinary tract infection type: acute cystitis Hematuria presence: without hematuria Qualified Code(s): N30.00 - Acute cystitis without hematuria (4) Constipation Priority: Secondary Status: Chronic Qualifiers: Constipation type: unspecified constipation type Qualified Code(s): K59.00 - Constipation, unspecified (5) Parkinson disease Priority: Secondary Status: Chronic Hospital course: Ms. Marie is a 78 year old female past medical history of hypertension hyperlipidemia Parkinson's disease presented to [facility] ED with complaints of nausea vomiting constipation for the past month. Denies any difficulty swallowing or globulus sensation outpatient CT abdomen/pelvis with contrast with nothing acute. Right upper quadrant ultrasound was unremarkable. No fevers or chills. KUB was obtained with nonobstructive bowel gas pattern patient did not appear constipated.-Urinalysis slightly however patient has not had any urinary complaints no fever no white count- patient was evaluated by speech therapy recommending sitting up 30 minutes post feeding as well as soft diet. Underwent EGD which was normal-avoid gastric irritants continue with PPI-patient has been eating and tolerating soft diet during this admission no more nausea or vomiting at this time. Advised patient follow-up with primary care provider - recommend follow-up outpatient barium swallow. Patient verbalized understanding she is here today with stable at this time and she is ready for discharge. - Time Spent with Patient Total time spent providing and/or coordinating discharge services: - Discharge Medications Prescriptions: New Omeprazole [PriLOSEC] 20 mg PO BIDAC #60 capsule. Ondansetron ODT [Zofran ODT] 4 mg SL Q6HR #30 tab.rapdis Continued Lisinopril [Zestril] 20 mg PO BID Oxybutynin [Ditropan] 5 mg PO DAILY cloNIDine HCl [CloNIDine HCl] 0.1 mg PO DAILY PRN PRN Reason: Blood Pressure Carbidopa/Levodopa 25/100 [Sinemet 25/100] 2 each PO TID Doxylamine Succinate [Unisom] 25 mg PO HS Multivitamin/Iron/Folic Acid [Centrum Complete Multivit Tab] 1 each PO DAILY Discontinued Meloxicam [Mobic] 7.5 mg PO BID No Action Simvastatin [Zocor] 20 mg PO HS Cholecalciferol (Vitamin D3) [Vitamin D3] 5,000 unit PO DAILY Aspirin [Lo-Dose Aspirin EC] 81 mg PO DAILY Home Medications: Aspirin [Lo-Dose Aspirin EC] 81 mg PO DAILY 12/24/15 [History] Cholecalciferol (Vitamin D3) [Vitamin D3] 5,000 unit PO DAILY 12/24/15 [History] Lisinopril [Zestril] 20 mg PO BID 12/24/15 [History] Simvastatin [Zocor] 20 mg PO HS 12/24/15 [History] Oxybutynin [Ditropan] 5 mg PO DAILY 11/26/16 [History] Carbidopa/Levodopa 25/100 [Sinemet 25/100] 2 each PO TID 10/17/18 [History] Doxylamine Succinate [Unisom] 25 mg PO HS 10/17/18 [History] Multivitamin/Iron/Folic Acid [Centrum Complete Multivit Tab] 1 each PO DAILY 10/17/18 [History] cloNIDine HCl [CloNIDine HCl] 0.1 mg PO DAILY PRN 10/17/18 [History] Omeprazole [PriLOSEC] 20 mg PO BIDAC #60 capsule. 10/19/18 [Rx] Ondansetron ODT [Zofran ODT] 4 mg SL Q6HR #30 tab.rapdis 10/19/18 [Rx] Allergies/Adverse Reactions: Allergy/AdvReac Type Severity Reaction Status Date / Time No Known Allergies Allergy Verified 11/26/16 07:49 Date of admission: 10/17/18 13:20 Primary care physician: Barrie Schulte DO Consults: 10/17/18 17:02 Consult to Gastroenterology [CONS] Routine Consulting Provider: Ge Richmond Reason for Consult: N/V Time Notified: 17:02 Call Completed: Yes Discharging clinician: Sally Steele Anticipated date of discharge: 10/19/18 - Constitutional Vitals: Temp Pulse Resp BP Pulse Ox 98.0 F 60 15 167/93 94 10/19/18 06:47 10/19/18 06:47 10/19/18 06:47 10/19/18 06:47 10/19/18 06:47 General appearance: Present: disheveled, A&O X 3, pleasant, answers questions appropriately Exam: Skin: Free of rash and discoloration. Eyes: Sclera is white. There is no discharge from eyes. ENMT: Oral/pharyngeal mucosa is normal in appearance. There is no discharge from nose or ears. Respiratory: Normal breath sounds with no crackles and wheezes bilaterally. CV: Heart is regular with no gallop or murmur. GI: Abdomen is flat and soft with no palpable mass or visceromegaly. : There is no tenderness in patient's flanks bilaterally. Neuro exam: He has good strength in upper and lower extremities. He has normal eye movements. no spatstic movements noted at this time Psychiatric: He has normal affect. His thought process is appropriate to the situation. - Patient Status Disposition: Home, Self-Care Condition: Fair Functional capacity at discharge: independent ambulation Overall status at discharge: patient is back to baseline - Discharge Instructions Instructions: Urinary Tract Infection in Women (DC) Follow Up With: Barrie Schulte DO [Primary Care Provider] - (Appointment has been requested.) Additional Instructions: Patient states that up 30 minutes post feeding-soft diet continue with PPI no gastric irritants-avoid NSAIDs - Diet and Activity Activity: increase activity as tolerated
== END 2018-10-19 11:24 | disposition home or self-care (01) ==
LOC: 3BNU 10:00 → EMEROOARM 10:00 → 3BNU 14:15
PROVIDERS: ADMIT Internal Medicine Nephrology; ATTEND Internal Medicine Nephrology

== ENCOUNTER 2020-02-23 18:05 | Inpatient (IN) ==
[2020-02-23] MEDS ORDERED: Lido/Epi/Tetra Gel 2 ML SYRINGE TP ONE (18:24)
[2020-02-23] MEDS ORDERED: Tdap (Boostrix) Vaccine 0.5 ML SYRINGE IM ONE (18:24)
[2020-02-23] MEDS ORDERED: Lidocaine/EPI 1:100k 1% 30 ML VIAL INFILT ONE (18:24)
[2020-02-23] MEDS ORDERED: *HR* FentaNYL (PF) 100 MCG/2 ML VIAL IVP ONE (18:37)
[2020-02-23] MEDS ORDERED: *HR* HYDROmorphone (PF) 1 MG/ML SYRINGE IVP ONE (20:21)
[2020-02-23 20:25] LABS: Basophils % 0.3 %; Eosinophils % 0.5 %; Hematocrit 37.6 % (35.3-44.9); Hemoglobin 12.4 g/dL (11.5-15.4); Immature Granulocytes % 0.6 % (0-4); Lymphocytes % 11.6 %; Mean Corpuscular Hemoglobin 31.1 pg (28.0-33.3); Mean Corpuscular Volume 94.2 fL (83.0-100.0); Mean Platelet Volume 9.6 fL (9.4-12.4); Monocytes # 0.3 K/mcL (0.0-1.3); Monocytes % 3.6 %; Neutrophils # 7.2 K/mcL (1.6-8.9); Platelet Count 247 K/mcL (140-400); Red Blood Count 3.99 M/mcL (3.82-4.97); Segmented Neutrophils % 83.4 %; White Blood Count 8.7 K/mcL (4.3-11.1)
[2020-02-23 20:26] LABS: Bilirubin,Urine Negative (Negative); Blood,Urine Negative (Negative); Clarity,Urine Clear (Clear); Color,Urine Light-Yellow (Yellow); Glucose,Urine (UA) Normal (Normal); Ketones,Urine Negative (Negative); Leukocyte Esterase,Urine Negative (Negative); Nitrite,Urine Negative (Negative); PH,Urine 6.5 pH Units (5.0-8.0); Protein,Urine Negative (Neg-Trace); Urobilinogen,Urine Normal (Normal)
[2020-02-23 20:30] LABS: Prothrombin Time 11.8 Seconds (9.4-12.1)
[2020-02-23 20:33] LABS: Activated Partial Thrombo Time 32.3 Seconds (26.0-36.0)
[2020-02-23 20:46] LABS: BUN/Creatinine Ratio 37 (6-26); Blood Urea Nitrogen 17 mg/dL (8-23); Calcium 9.1 mg/dL (8.6-10.3); Carbon Dioxide 23 mEq/L (23-29); Chloride 109 mEq/L (98-107); Glucose 158 mg/dL (70-105); Osmolality,Calculated 297 (280-300); Potassium 3.8 mEq/L (3.5-5.1); Sodium 141 mEq/L (136-145); eGFR For African Americans > 60 (> 60); eGFR For Non-African Americans > 60 (> 60)
[2020-02-23 22:31] LABS: Adenovirus Not Detected (Not Detect); Coronavirus 229E Not Detected (Not Detect); Coronavirus HKU1 Not Detected (Not Detect); Coronavirus NL63 Not Detected (Not Detect); Coronavirus OC43 Not Detected (Not Detect); SARS-CoV-2 Not Detected (Not Detect)
[2020-02-23 22:32] LABS: Bordetella Pertussis Not Detected (Not Detect); Chlamydophila pneumoniae Not Detected (Not Detect); Human Metapneumovirus Not Detected (Not Detect); Human Rhinovirus/Enterovirus Not Detected (Not Detect); Influenza A Subtype 2009 H1 Not Detected (Not Detect); Influenza B Not Detected (Not Detect); Mycoplasma pneumoniae Not Detected (Not Detect); Parainfluenza Virus 1 Not Detected (Not Detect); Parainfluenza Virus 2 Not Detected (Not Detect); Parainfluenza Virus 3 Not Detected (Not Detect); Parainfluenza Virus 4 Not Detected (Not Detect); Respiratory Syncytial Virus Not Detected (Not Detect)
[2020-02-23] MEDS ORDERED: Naloxone 0.4 MG/ML INJ IVP PRN (23:24)
[2020-02-24 06:27] LABS: Hemoglobin 11.8 g/dL (11.5-15.4); Mean Corpuscular HGB Conc 32.8 g/dL (31.6-35.5); Mean Corpuscular Hemoglobin 31.3 pg (28.0-33.3); Mean Corpuscular Volume 95.5 fL (83.0-100.0); Mean Platelet Volume 9.9 fL (9.4-12.4); Platelet Count 215 K/mcL (140-400); Red Blood Count 3.77 M/mcL (3.82-4.97); Red Cell Distribution Width 13.1 % (11.5-14.5); White Blood Count 12.1 K/mcL (4.3-11.1)
[2020-02-24 06:28] LABS: INR 1.1; Prothrombin Time 12.6 Seconds (9.4-12.1)
[2020-02-24 06:31] LABS: Activated Partial Thrombo Time 29.4 Seconds (26.0-36.0)
[2020-02-24 06:52] LABS: BUN/Creatinine Ratio 33 (6-26); Blood Urea Nitrogen 18 mg/dL (8-23); Carbon Dioxide 25 mEq/L (23-29); Chloride 108 mEq/L (98-107); Glucose 138 mg/dL (70-105); Magnesium 1.8 mg/dL (1.6-2.6); Osmolality,Calculated 298 (280-300); Phosphorous 2.8 mg/dL (2.7-4.5); Potassium 3.4 mEq/L (3.5-5.1); Sodium 142 mEq/L (136-145); eGFR For African Americans > 60 (> 60); eGFR For Non-African Americans > 60 (> 60)
[2020-02-24] MEDS ORDERED: Carbidopa/Levodopa 25/100 TABLET PO SCH (09:30)
[2020-02-24] MEDS ORDERED: Povidone-Iodine 45 ML, Sodium Chloride IRRigation 1,000 ML IR ONE (09:45)
[2020-02-24] MEDS ORDERED: *HR* FentaNYL (PF) 100 MCG/2 ML VIAL ONE ×2 (11:06→11:07)
[2020-02-24] MEDS ORDERED: Ondansetron 4 MG/2 ML VIAL IVP PRN ×2 (11:12→14:56)
[2020-02-24] MEDS ORDERED: *HR* HYDROmorphone PF 0.5 MG/0.5 ML SYRINGE IVP PRN (11:12)
[2020-02-24] MEDS ORDERED: *HR* FentaNYL (PF) 100 MCG/2 ML VIAL IVP PRN (11:15)
[2020-02-24] MEDS ORDERED: Ethanol\\Acetic Acid\\Na Ace\\Ben 1,000 ML IRRIG.SOLN IR ONE (11:32)
[2020-02-24] MEDS ORDERED: Vancomycin 1,000 MG VIAL ONE ×2 (11:32→11:33)
[2020-02-24] MEDS ORDERED: Lidocaine -MPF 2% 2 ML VIAL ONE (11:46)
[2020-02-24] MEDS ORDERED: ceFAZolin 2,000 MG in Water for inj. (sterile) 20 ML IVP ONE (11:47)
[2020-02-24] MEDS ORDERED: EPHEDrine 50 MG/ML VIAL ONE (12:09)
[2020-02-24] MEDS ORDERED: Ondansetron 4 MG/2 ML VIAL ONE (12:20)
[2020-02-24] MEDS ORDERED: *HR* PHENYLEPHRINE 1,000 MCG/10 ML SYRINGE IVP ONE (12:21)
[2020-02-24 13:50] LABS: Hematocrit 34.6 % (35.3-44.9); Hemoglobin 10.9 g/dL (11.5-15.4)
[2020-02-24] MEDS ORDERED: Naloxone 0.4 MG/ML INJ IVP PRN (14:56)
[2020-02-24] MEDS ORDERED: *HR* Promethazine 25 MG/ML VIAL IM PRN (14:56)
[2020-02-24] MEDS ORDERED: Lactulose Oral Soln 20 GM/30 ML UDC PO PRN (14:56)
[2020-02-24] MEDS ORDERED: Sennosides 8.6 MG TABLET PO PRN (14:56)
[2020-02-24] MEDS ORDERED: Ringers Solution, Lactated 1,000 ML IVC SCH (14:56)
[2020-02-24] MEDS ORDERED: MOM Conc 10 ML UD.LIQ PO PRN (14:56)
[2020-02-24] MEDS ORDERED: HYDROcodone BIT/Homatropine 5 MG TABLET PO PRN (14:56)
[2020-02-24] MEDS: Carbidopa/Levodopa 25/100 TABLET PO SCH ×2 (17:42→20:58)
[2020-02-24] MEDS: Ascorbic Acid 500 MG TABLET PO SCH (17:42)
[2020-02-24] MEDS: CeFAZolin 2 GM/120 ML BAG IVPB SCH ×2 (17:43→23:47)
[2020-02-24] MEDS ORDERED: TOTAL JOINT MIXTURE (100ML) INTRAART ONE (19:00)
[2020-02-24] MEDS: Lactobacillus 1 EACH CAP.SPRINK PO SCH (20:56)
[2020-02-24] MEDS: lisinopriL 20 MG TABLET PO SCH (20:59)
[2020-02-24] MEDS: DOXYLAMINE SUCCINATE 25 MG PO SCH (21:03)
[2020-02-25 01:05] LABS: Basophils % 0.2 %; Hematocrit 30.2 % (35.3-44.9); Hemoglobin 10.1 g/dL (11.5-15.4); Immature Granulocytes % 0.4 % (0-4); Lymphocytes # 0.5 K/mcL (0.6-4.6); Lymphocytes % 5.1 %; Mean Corpuscular HGB Conc 33.4 g/dL (31.6-35.5); Mean Corpuscular Hemoglobin 31.9 pg (28.0-33.3); Mean Corpuscular Volume 95.3 fL (83.0-100.0); Mean Platelet Volume 9.7 fL (9.4-12.4); Monocytes # 0.5 K/mcL (0.0-1.3); Monocytes % 5.3 %; Neutrophils # 8.8 K/mcL (1.6-8.9); Platelet Count 161 K/mcL (140-400); Red Blood Count 3.17 M/mcL (3.82-4.97); Red Cell Distribution Width 13.2 % (11.5-14.5); White Blood Count 9.8 K/mcL (4.3-11.1)
[2020-02-25 01:23] LABS: BUN/Creatinine Ratio 35 (6-26); Blood Urea Nitrogen 18 mg/dL (8-23); Carbon Dioxide 24 mEq/L (23-29); Chloride 108 mEq/L (98-107); Glucose 149 mg/dL (70-105); Osmolality,Calculated 293 (280-300); Potassium 3.5 mEq/L (3.5-5.1); Sodium 139 mEq/L (136-145); eGFR For African Americans > 60 (> 60); eGFR For Non-African Americans > 60 (> 60)
[2020-02-25] MEDS: Cholecalciferol (D-3) 1,000 UNIT (25MCG) TABLET PO SCH (08:59)
[2020-02-25] MEDS: Lactobacillus 1 EACH CAP.SPRINK PO SCH ×2 (08:59→20:13)
[2020-02-25] MEDS: Multivit/Ca/Min/Fe/FA 1 TAB TABLET PO SCH (08:59)
[2020-02-25] MEDS: Carbidopa/Levodopa 25/100 TABLET PO SCH ×3 (08:59→20:10)
[2020-02-25] MEDS: Ascorbic Acid 500 MG TABLET PO SCH ×2 (09:00→16:41)
[2020-02-25] MEDS: lisinopriL 20 MG TABLET PO SCH ×2 (09:00→20:10)
[2020-02-25] MEDS: *HR* OxyCODONE Immed Rel 5 MG TABLET PO PRN ×2 (09:17→16:41)
[2020-02-25] MEDS: Aspirin Enteric Coated 81 MG Tablet PO SCH (16:46)
[2020-02-25] MEDS: DOXYLAMINE SUCCINATE 25 MG PO SCH (20:11)
[2020-02-26 05:42] LABS: Basophils % 0.3 %; Eosinophils # 0.1 K/mcL (0.0-0.6); Eosinophils % 0.8 %; Hematocrit 28.1 % (35.3-44.9); Hemoglobin 9.4 g/dL (11.5-15.4); Immature Granulocytes % 0.4 % (0-4); Lymphocytes # 0.6 K/mcL (0.6-4.6); Lymphocytes % 6.8 %; Mean Corpuscular HGB Conc 33.5 g/dL (31.6-35.5); Mean Corpuscular Hemoglobin 31.8 pg (28.0-33.3); Mean Corpuscular Volume 94.9 fL (83.0-100.0); Mean Platelet Volume 10.6 fL (9.4-12.4); Monocytes # 0.6 K/mcL (0.0-1.3); Monocytes % 5.8 %; Neutrophils # 8.1 K/mcL (1.6-8.9); Platelet Count 158 K/mcL (140-400); Red Blood Count 2.96 M/mcL (3.82-4.97); Red Cell Distribution Width 13.3 % (11.5-14.5); Segmented Neutrophils % 85.9 %; White Blood Count 9.4 K/mcL (4.3-11.1)
[2020-02-26 06:02] LABS: BUN/Creatinine Ratio 53 (6-26); Blood Urea Nitrogen 23 mg/dL (8-23); Calcium 8.5 mg/dL (8.6-10.3); Carbon Dioxide 25 mEq/L (23-29); Chloride 105 mEq/L (98-107); Glucose 129 mg/dL (70-105); Osmolality,Calculated 287 (280-300); Potassium 3.7 mEq/L (3.5-5.1); Sodium 136 mEq/L (136-145); eGFR For African Americans > 60 (> 60); eGFR For Non-African Americans > 60 (> 60)
[2020-02-26] MEDS: *HR* OxyCODONE Immed Rel 5 MG TABLET PO PRN ×3 (11:14→22:31)
[2020-02-26] MEDS: Aspirin Enteric Coated 81 MG Tablet PO SCH (11:15)
[2020-02-26] MEDS: Lactobacillus 1 EACH CAP.SPRINK PO SCH ×2 (11:15→22:22)
[2020-02-26] MEDS: Multivit/Ca/Min/Fe/FA 1 TAB TABLET PO SCH (11:15)
[2020-02-26] MEDS: Carbidopa/Levodopa 25/100 TABLET PO SCH ×3 (11:15→22:23)
[2020-02-26] MEDS: Ascorbic Acid 500 MG TABLET PO SCH ×2 (11:16→17:33)
[2020-02-26] MEDS: Cholecalciferol (D-3) 1,000 UNIT (25MCG) TABLET PO SCH (11:16)
[2020-02-26] MEDS: lisinopriL 20 MG TABLET PO SCH ×2 (11:17→22:23)
[2020-02-26] MEDS: DOXYLAMINE SUCCINATE 25 MG PO SCH (22:23)
[2020-02-26] MEDS ORDERED: Ipratropium/Albuterol Neb 3 ML IH PRN (22:51)
[2020-02-27 01:54] LABS: Basophils % 0.2 %; Eosinophils # 0.3 K/mcL (0.0-0.6); Eosinophils % 3.5 %; Hematocrit 28.9 % (35.3-44.9); Hemoglobin 9.3 g/dL (11.5-15.4); Immature Granulocytes % 0.5 % (0-4); Mean Corpuscular HGB Conc 32.2 g/dL (31.6-35.5); Mean Corpuscular Hemoglobin 30.1 pg (28.0-33.3); Mean Corpuscular Volume 93.5 fL (83.0-100.0); Mean Platelet Volume 10.3 fL (9.4-12.4); Monocytes # 0.9 K/mcL (0.0-1.3); Monocytes % 10.1 %; Neutrophils # 6.3 K/mcL (1.6-8.9); Platelet Count 174 K/mcL (140-400); Red Blood Count 3.09 M/mcL (3.82-4.97); Red Cell Distribution Width 13.3 % (11.5-14.5); Segmented Neutrophils % 73.7 %; White Blood Count 8.6 K/mcL (4.3-11.1)
[2020-02-27 02:03] LABS: BUN/Creatinine Ratio 52 (6-26); Blood Urea Nitrogen 22 mg/dL (8-23); Calcium 8.3 mg/dL (8.6-10.3); Carbon Dioxide 26 mEq/L (23-29); Chloride 105 mEq/L (98-107); Glucose 133 mg/dL (70-105); Osmolality,Calculated 291 (280-300); Potassium 3.7 mEq/L (3.5-5.1); Sodium 138 mEq/L (136-145); eGFR For African Americans > 60 (> 60); eGFR For Non-African Americans > 60 (> 60)
[2020-02-27 07:07] VITALS: BP 127/72
[2020-02-27] MEDS: Carbidopa/Levodopa 25/100 TABLET PO SCH (07:48)
[2020-02-27] MEDS: Lactobacillus 1 EACH CAP.SPRINK PO SCH (07:48)
[2020-02-27] MEDS: Multivit/Ca/Min/Fe/FA 1 TAB TABLET PO SCH (07:49)
[2020-02-27] MEDS: Aspirin Enteric Coated 81 MG Tablet PO SCH (07:49)
[2020-02-27] MEDS: Ascorbic Acid 500 MG TABLET PO SCH (07:49)
[2020-02-27] MEDS: Cholecalciferol (D-3) 1,000 UNIT (25MCG) TABLET PO SCH (07:49)
[2020-02-27] MEDS: lisinopriL 20 MG TABLET PO SCH (07:50)
== END 2020-02-27 11:13 | DRG 522 ==
LOC: EMEROOARM 18:05 → 3NENU 18:05
PROVIDERS: ADMIT Internal Medicine; ATTEND Internal Medicine

== ENCOUNTER 2021-04-26 15:48 | Inpatient (IN) ==
[2021-04-26 17:52] LABS: Basophils % 0.2 %; Eosinophils % 0.3 %; Hematocrit 39.7 % (35.3-44.9); Hemoglobin 13.1 g/dL (11.5-15.4); Immature Granulocytes % 0.6 % (0-4); Lymphocytes # 0.9 K/mcL (0.6-4.6); Lymphocytes % 9.9 %; Mean Corpuscular Hemoglobin 30.8 pg (28.0-33.3); Mean Corpuscular Volume 93.4 fL (83.0-100.0); Mean Platelet Volume 9.9 fL (9.4-12.4); Monocytes # 0.3 K/mcL (0.0-1.3); Monocytes % 3.7 %; Neutrophils # 7.6 K/mcL (1.6-8.9); Platelet Count 236 K/mcL (140-400); Red Blood Count 4.25 M/mcL (3.82-4.97); Red Cell Distribution Width 13.1 % (11.5-14.5); Segmented Neutrophils % 85.3 %; White Blood Count 8.9 K/mcL (4.3-11.1)
[2021-04-26 18:09] LABS: BUN/Creatinine Ratio 30 (6-26); Blood Urea Nitrogen 16 mg/dL (8-23); Calcium 9.7 mg/dL (8.6-10.3); Carbon Dioxide 26 mEq/L (23-29); Chloride 104 mEq/L (98-107); Glucose 105 mg/dL (70-105); Osmolality,Calculated 292 (280-300); Potassium 3.6 mEq/L (3.5-5.1); Sodium 140 mEq/L (136-145); eGFR For African Americans > 60 (> 60); eGFR For Non-African Americans > 60 (> 60)
[2021-04-26] MEDS ORDERED: Naloxone 0.4 MG/ML INJ IVP PRN (19:51)
[2021-04-26] MEDS ORDERED: Melatonin 3 MG TABLET PO PRN (19:51)
[2021-04-26 20:58] LABS: Influenza A PCR Negative (Negative); Influenza B PCR Negative (Negative); Resp. Syncytial Virus PCR Negative (Negative); SARS-CoV-2 by PCR (In House) Negative (Negative)
[2021-04-26] MEDS ORDERED: traZODone 50 MG TABLET PO SCH (21:00)
[2021-04-26] MEDS: Carbidopa/Levodopa 25/100 TABLET PO SCH (23:43)
[2021-04-27 05:58] LABS: Hematocrit 37.6 % (35.3-44.9); Hemoglobin 12.3 g/dL (11.5-15.4); Mean Corpuscular HGB Conc 32.7 g/dL (31.6-35.5); Mean Corpuscular Hemoglobin 30.5 pg (28.0-33.3); Mean Corpuscular Volume 93.3 fL (83.0-100.0); Platelet Count 226 K/mcL (140-400); Red Blood Count 4.03 M/mcL (3.82-4.97); Red Cell Distribution Width 13.4 % (11.5-14.5); White Blood Count 13.2 K/mcL (4.3-11.1)
[2021-04-27 06:10] LABS: INR 1.1; Prothrombin Time 11.8 Seconds (9.4-12.1)
[2021-04-27 06:26] LABS: BUN/Creatinine Ratio 24 (6-26); Blood Urea Nitrogen 23 mg/dL (8-23); Calcium 9.1 mg/dL (8.6-10.3); Carbon Dioxide 25 mEq/L (23-29); Chloride 106 mEq/L (98-107); Glucose 140 mg/dL (70-105); Osmolality,Calculated 296 (280-300); Phosphorous 4.1 mg/dL (2.7-4.5); Sodium 140 mEq/L (136-145); eGFR For African Americans > 60 (> 60); eGFR For Non-African Americans 56 (> 60)
[2021-04-27] MEDS: Carbidopa/Levodopa 25/100 TABLET PO SCH ×4 (08:26→18:19)
[2021-04-27] MEDS ORDERED: 0.9 % Sodium Chloride 1,000 ML IVC SCH (11:45)
[2021-04-27] MEDS ORDERED: *HR* FentaNYL (PF) 100 MCG/2 ML VIAL ONE (14:32)
[2021-04-27] MEDS ORDERED: *HR* Propofol 200 MG/20 ML VIAL IVP ONE (14:32)
[2021-04-27] MEDS ORDERED: Ondansetron 4 MG/2 ML VIAL ONE (14:33)
[2021-04-27] MEDS ORDERED: Lidocaine -MPF 2% 5 ML VIAL ONE (14:33)
[2021-04-27] MEDS ORDERED: CeFAZolin Syr 2,000MG/20 ML 2,000 MG/20 ML SYRINGE IVPB ONE (14:52)
[2021-04-27] MEDS ORDERED: Ringers Solution, Lactated 1,000 ML IVC SCH (15:00)
[2021-04-27] MEDS ORDERED: Lactulose Oral Soln 20 GM/30 ML UDC PO PRN (15:18)
[2021-04-27] MEDS ORDERED: Acetaminophen IV 1,000 MG/100 ML BAG IVPB ONE (15:54)
[2021-04-27] MEDS: traZODone 50 MG TABLET PO SCH (22:48)
[2021-04-27] MEDS: lisinopriL 20 MG TABLET PO SCH (22:48)
[2021-04-27] MEDS: CeFAZolin 2 GM/120 ML BAG IVPB SCH (22:54)
[2021-04-28 05:06] LABS: Hematocrit 32.4 % (35.3-44.9); Hemoglobin 10.7 g/dL (11.5-15.4); Mean Corpuscular Hemoglobin 31.6 pg (28.0-33.3); Mean Corpuscular Volume 95.6 fL (83.0-100.0); Mean Platelet Volume 10.3 fL (9.4-12.4); Platelet Count 183 K/mcL (140-400); Red Blood Count 3.39 M/mcL (3.82-4.97); Red Cell Distribution Width 13.5 % (11.5-14.5); White Blood Count 10.3 K/mcL (4.3-11.1)
[2021-04-28 05:17] LABS: BUN/Creatinine Ratio 42 (6-26); Blood Urea Nitrogen 27 mg/dL (8-23); Calcium 8.6 mg/dL (8.6-10.3); Carbon Dioxide 26 mEq/L (23-29); Chloride 105 mEq/L (98-107); Glucose 118 mg/dL (70-105); Magnesium 1.9 mg/dL (1.6-2.6); Osmolality,Calculated 292 (280-300); Potassium 4.3 mEq/L (3.5-5.1); Sodium 138 mEq/L (136-145); eGFR For African Americans > 60 (> 60); eGFR For Non-African Americans > 60 (> 60)
[2021-04-28] MEDS: *HR* Enoxaparin 40 MG/0.4 ML SYRINGE SQ SCH (07:18)
[2021-04-28] MEDS: Aspirin Enteric Coated 81 MG Tablet PO SCH (07:58)
[2021-04-28] MEDS: CeFAZolin 2 GM/120 ML BAG IVPB SCH (08:20)
[2021-04-28] MEDS: lisinopriL 20 MG TABLET PO SCH ×2 (08:21→22:28)
[2021-04-28] MEDS ORDERED: Aspirin Enteric Coated 325 MG Tablet PO SCH (09:00)
[2021-04-28] MEDS: Carbidopa/Levodopa 25/100 TABLET PO SCH ×4 (10:53→23:22)
[2021-04-28] MEDS: traZODone 50 MG TABLET PO SCH (22:29)
[2021-04-29] MEDS: *HR* Enoxaparin 40 MG/0.4 ML SYRINGE SQ SCH (05:04)
[2021-04-29] MEDS: lisinopriL 20 MG TABLET PO SCH ×2 (07:59→20:57)
[2021-04-29] MEDS: Carbidopa/Levodopa 25/100 TABLET PO SCH ×4 (08:01→17:16)
[2021-04-29] MEDS: Aspirin Enteric Coated 81 MG Tablet PO SCH (08:01)
[2021-04-29 09:03] LABS: Hematocrit 33.8 % (35.3-44.9); Hemoglobin 10.9 g/dL (11.5-15.4); Mean Corpuscular HGB Conc 32.2 g/dL (31.6-35.5); Mean Corpuscular Hemoglobin 30.4 pg (28.0-33.3); Mean Corpuscular Volume 94.4 fL (83.0-100.0); Platelet Count 181 K/mcL (140-400); Red Blood Count 3.58 M/mcL (3.82-4.97); Red Cell Distribution Width 13.4 % (11.5-14.5); White Blood Count 9.2 K/mcL (4.3-11.1)
[2021-04-29 09:16] LABS: BUN/Creatinine Ratio 31 (6-26); Blood Urea Nitrogen 17 mg/dL (8-23); Calcium 8.5 mg/dL (8.6-10.3); Carbon Dioxide 29 mEq/L (23-29); Chloride 104 mEq/L (98-107); Glucose 101 mg/dL (70-105); Magnesium 1.8 mg/dL (1.6-2.6); Osmolality,Calculated 288 (280-300); Sodium 138 mEq/L (136-145); eGFR For African Americans > 60 (> 60); eGFR For Non-African Americans > 60 (> 60)
[2021-04-29] MEDS: traZODone 50 MG TABLET PO SCH (20:56)
[2021-04-30] MEDS: *HR* Enoxaparin 40 MG/0.4 ML SYRINGE SQ SCH (06:48)
[2021-04-30] MEDS: Aspirin Enteric Coated 81 MG Tablet PO SCH (09:28)
[2021-04-30] MEDS: lisinopriL 20 MG TABLET PO SCH ×2 (09:30→20:06)
[2021-04-30] MEDS: Carbidopa/Levodopa 25/100 TABLET PO SCH ×4 (09:30→19:48)
[2021-04-30] MEDS: traZODone 50 MG TABLET PO SCH (20:04)
[2021-05-01 03:03] LABS: Hematocrit 31.2 % (35.3-44.9); Hemoglobin 10.4 g/dL (11.5-15.4); Mean Corpuscular HGB Conc 33.3 g/dL (31.6-35.5); Mean Corpuscular Hemoglobin 31.1 pg (28.0-33.3); Mean Corpuscular Volume 93.4 fL (83.0-100.0); Mean Platelet Volume 10.2 fL (9.4-12.4); Platelet Count 213 K/mcL (140-400); Red Blood Count 3.34 M/mcL (3.82-4.97); Red Cell Distribution Width 13.2 % (11.5-14.5); White Blood Count 7.6 K/mcL (4.3-11.1)
[2021-05-01 03:15] LABS: BUN/Creatinine Ratio 36 (6-26); Blood Urea Nitrogen 19 mg/dL (8-23); Calcium 8.6 mg/dL (8.6-10.3); Carbon Dioxide 27 mEq/L (23-29); Chloride 109 mEq/L (98-107); Glucose 115 mg/dL (70-105); Osmolality,Calculated 279 (280-300); Potassium 3.9 mEq/L (3.5-5.1); Sodium 133 mEq/L (136-145); eGFR For African Americans > 60 (> 60); eGFR For Non-African Americans > 60 (> 60)
[2021-05-01] MEDS: *HR* Enoxaparin 40 MG/0.4 ML SYRINGE SQ SCH (05:14)
[2021-05-01] MEDS: lisinopriL 20 MG TABLET PO SCH (09:16)
[2021-05-01] MEDS: Aspirin Enteric Coated 81 MG Tablet PO SCH (09:16)
[2021-05-01] MEDS: Carbidopa/Levodopa 25/100 TABLET PO SCH ×3 (09:19→16:17)
[2021-05-01 11:36] VITALS: BP 102/65; PULSE 71; TEMP 97.6; O2SAT 97
== END 2021-05-01 16:50 | DRG 481 ==
LOC: EMEROOARM 15:48 → SUATTDRO 21:11 → 4WAOSI 21:11
PROVIDERS: ADMIT Student in an Organized Health Care Education/Training Program; ATTEND Internal Medicine